=== PATIENT | female | born 1985 | race Caucasian/White ===

== ENCOUNTER 2019-12-18 07:22 | Day surgery (SDC) | payer BC ==
[2019-12-18] VITALS (8 sets, daily range): BP systolic 112–134; BP diastolic 70–95; Ht 170.2 cm; Wt 74.5 kg
[~2019-12-18] VITALS: Ht 170.2 cm; Wt 74.5 kg
[2019-12-18 07:53] LABS: APTT 25.9 SECONDS (22.8-39.4); INR 0.91 (0.85-1.17); PROTIME 12.3 SECONDS (11.6-15.0)
[2019-12-18] MEDS ORDERED: PREDNISONE10 MG PO (08:08)
[2019-12-18] MEDS ORDERED: LASIX40 MG PO (08:08)
[2019-12-18] MEDS ORDERED: HYDROXYCHLOROQ200 MG PO (08:08)
[2019-12-18] MEDS ORDERED: METOLAZONE2.5 MG PO (08:09)
[2019-12-18] MEDS ORDERED: VITAMIN D2000 UNI1 PO (08:10)
[2019-12-18] MEDS ORDERED: LISINOPRIL5 MG PO (08:10)
[2019-12-18 08:15] LABS: BASOPHILS 0.3 % (0-2); EOSINOPHILS 1.3 % (0-7); HEMATOCRIT 29.1 % (36.0-48.0); HEMOGLOBIN 9.6 g/dL (12-16); IMMATURE GRANULOCYTES 0.6 % (0-5); LYMPHOCYTES 25.5 % (15-50); MCH 29.7 pg (26.0-34.0); MCV 90.1 fL (80.0-100.0); MEAN PLATELET VOLUME 9.8 fL (7.4-10.4); NEUTROPHILS 58.3 % (40-80); PLATELET COUNT 279 10x3/uL (130-400); RBC 3.23 10x6/uL (4.00-5.40); RDW 12.1 % (11.5-14.5); WBC 3.1 10x3/uL (4.8-10.8)
[2019-12-18 08:26] LABS: CARBON DIOXIDE 24.7 mmol/L (21.0-32.0); CREATININE - SERUM 2.5 mg/dL (0.6-1.3); POTASSIUM - SERUM 4.7 mmol/L (3.5-5.1)
[2019-12-18 08:34] LABS: CALCIUM 6.9 mg/dL (8.5-10.1)
[2019-12-18 12:06] LABS: HCG SERUM NEGATIVE (NEGATIVE)
--- NOTE | 2019-12-18 15:23 | NUR ---
1515 LAB NOTIFIED OF POST DUE LAB DRAW.
--- NOTE | 2019-12-18 15:28 | NUR ---
1525 LAB HERE FOR DRAW. RENAL ADA DIET HAS BEEN ORDERED.
--- NOTE | 2019-12-18 15:35 | NUR ---
1535 RENAL DIET SERVED. PT. ADJUSTED BED TO EAT.
[2019-12-18 15:41] LABS: BASOPHILS 0.3 % (0-2); EOSINOPHILS 1.4 % (0-7); HEMOGLOBIN 10.3 g/dL (12-16); IMMATURE GRANULOCYTES 0.7 % (0-5); LYMPHOCYTES 23.3 % (15-50); MCH 30.1 pg (26.0-34.0); MCHC 33.2 g/dL (31.0-37.0); MCV 90.6 fL (80.0-100.0); MEAN PLATELET VOLUME 9.9 fL (7.4-10.4); MONOCYTES 17.2 % (2-11); NEUTROPHILS 57.1 % (40-80); PLATELET COUNT 260 10x3/uL (130-400); RBC 3.42 10x6/uL (4.00-5.40); RDW 12.3 % (11.5-14.5)
[2019-12-18 15:59] LABS: CALCIUM 7.6 mg/dL (8.5-10.1)
--- NOTE | 2019-12-18 16:55 | NUR ---
1655 REPORT PHONED TO GANESH, TO [id number] VIA BED.
--- NOTE | 2019-12-18 17:22 | NUR ---
RECEIVED PATIENT FROM OUTPATIENT. ALERT AND ORIENTED. NO C/O PAIN. NO S/S OF ACUTE DISTRESS NOTED. RIGHT RENAL BIOPSY, DRESSING C/D/I. IV TO RIGHT AC, 1/2 NS INFUSING @ 30ML/HR. SITE PATENT WITHOUT REDNESS OR SWELLING. DENIES ANY NEEDS AT THIS TIME. CALL LIGHT IN REACH. WILL CONTINUE TO MONITOR.
--- NOTE | 2019-12-18 18:17 | NUR ---
A&O RESTING IN BED WITH EYES OPEN. NO C/O PAIN. NO S/S OF ACUTE DISTRESS NOTED. DENIES ANY NEEDS AT THIS TIME. CALL LIGHT IN REACH. WILL CONTINUE TO MONITOR.
--- NOTE | 2019-12-18 20:40 | NUR ---
SUPINE IN BED, SPONTANEOUS EYE OPENING UPON VERBAL STIMULATION. ORIENTED X 4. FSBS 32. PT REPORTS NO DROWSY/DIZZINESS/WEAKNESS WHEN JUST AMBULATION TO RESTROOM. D5 GIVEN IV, WILL REASSESS SHORTLY. SNACKS GIVEN, PT STATES LAST TIME SHE ATE WAS AROUND 3PM. DIET CHANGED TO RENAL DIET. MONITOR CLOSELY.
--- NOTE | 2019-12-18 21:10 | NUR ---
FSBS UP TO 57, PT STILL SNACKING, MONITOR CLOSELY.
[2019-12-19] VITALS: BP 134/86
--- NOTE | 2019-12-19 02:00 | NUR ---
IV TO RIGHT AC, LEAKING. CATHETER MOSTLY STICKING OUT. DCd CATH INTACT. CTM.
--- NOTE | 2019-12-19 02:05 | NUR ---
I have reviewed this patient and I concur with the Shift Assessment completed by the Licensed Practical Nurse today this shift.
[2019-12-19 04:00] VITALS: BP 119/80
[2019-12-19 05:21] LABS: BASOPHILS 0 % (0-2); EOSINOPHILS 0.5 % (0-7); HEMATOCRIT 30.1 % (36.0-48.0); HEMOGLOBIN 9.9 g/dL (12-16); IMMATURE GRANULOCYTES 0.5 % (0-5); LYMPHOCYTES 11.1 % (15-50); MCH 29.7 pg (26.0-34.0); MCHC 32.9 g/dL (31.0-37.0); MCV 90.4 fL (80.0-100.0); MEAN PLATELET VOLUME 10.1 fL (7.4-10.4); MONOCYTES 10.9 % (2-11); PLATELET COUNT 278 10x3/uL (130-400); RBC 3.33 10x6/uL (4.00-5.40); RDW 12.2 % (11.5-14.5)
[2019-12-19 05:22] LABS: WBC 4.4 10x3/uL (4.8-10.8)
--- NOTE | 2019-12-19 07:46 | NUR ---
0700 BEDSIDE REPORT RECEIVED VOICES NO COMPLAINTS
[2019-12-19 08:22] VITALS: BP 135/85
[2019-12-19 10:15] LABS: BASOPHILS 0 % (0-2); EOSINOPHILS 0.3 % (0-7); HEMATOCRIT 29.1 % (36.0-48.0); HEMOGLOBIN 9.6 g/dL (12-16); IMMATURE GRANULOCYTES 0.3 % (0-5); LYMPHOCYTES 16.2 % (15-50); MCH 29.6 pg (26.0-34.0); MCV 89.8 fL (80.0-100.0); MONOCYTES 16.2 % (2-11); PLATELET COUNT 264 10x3/uL (130-400); RBC 3.24 10x6/uL (4.00-5.40); WBC 3.8 10x3/uL (4.8-10.8)
== END 2019-12-19 13:33 | disposition home or self-care (01) ==
LOC: D.SP 07:22 → D.RAD 11:00 → D.MS 16:56 → D.SP 12-19 13:33
PROVIDERS: Internal Medicine; Radiology Diagnostic Radiology; ATTEND Internal Medicine Nephrology
DX: N18.9 Chronic kidney disease, unspecified (principal); M32.14 Glomerular disease in systemic lupus erythematosus; N04.2 Nephrotic syndrome with diffuse membranous glomerulonephritis; I10 Essential (primary) hypertension; E78.5 Hyperlipidemia, unspecified; Z68.24 Body mass index [BMI] 24.0-24.9, adult; Z68.25 Body mass index [BMI] 25.0-25.9, adult